=== PATIENT | male | born 1955 | race Caucasian/White ===

== ENCOUNTER → 2017-05-19 | Day surgery (SDC) | payer MEDICARE ==
[~2017-05-19] MED LIST: BIOFLEX TABLET1 EACH PO; CIPRO750 MG PO; CVS OMEGA-3 KR1 EACH PO; DEMEROL; DICYCLOMINE HCL20 MG PO; DILAUDID4 MG PO; HYDROCODONE-APA1 T54 PO; LIPITOR40 MG; LISINOPRIL-HCTZ1 T14 PO; MOBIC15 MG PO; NEXIUM PO; NORCO 10-325 TA1 TAB PO; RA ONE DAILY M1 EACH PO; TEMAZEPAM PO; TEMAZEPAM30 MG PO; VITAMIN C500 M1 PO; VITAMIN D400 UNI2 PO; ZESTORETIC 10/11 TAB; ZESTORETIC 20-1 EAC1 PO; ZESTORETIC 20/11 TAB
--- NOTE | ~2017-05-19 | OR ---
Unit #: [id number] #: [id number] Patient: COMPA DINH [id number] [address] [address] [id number] MR#: [id number] NAME: COMPA DINH ROOM: Date of Procedure: 05/19/2017 Admission Date: 05/19/2017 Surgeon: Isaac Low M.D. : 1955 Attending Physician: Isaac Low M.D. Primary Care Physician: Marcus Pina M.D. OPERATIVE REPORT PREOPERATIVE DIAGNOSES Thoracic degenerative disk disease, back pain, thoracic radiculopathy. POSTOPERATIVE DIAGNOSIS Thoracic degenerative disk disease, back pain, thoracic radiculopathy. PROCEDURE PERFORMED Thoracic epidural steroid injection with fluoroscopic guidance for needle localization. INDICATIONS FOR PROCEDURE The patient is a 61-year-old male with multilevel multifactorial disk and spine disease. He has had a prior cervical and lumbar decompression and fusions. He has significant thoracic disk disease at T6-T7 level. He has failed to settle with conservative measures, so the plan is to trial epidural steroid injection. DESCRIPTION OF PROCEDURE The patient was placed in a seated position. Standard monitors were applied. Sterile prep and drape of the thoracic area were performed. The skin then to the right of midline at the T7 level was localized with 1% lidocaine. An 18-gauge Hustead needle was then advanced via right paramedian approach and loss of resistance technique in toward the epidural space. After confirming proper positioning with fluoroscopy and radiographic contrast, 80 mg of Depo-Medrol and 4 mL of 0.125% bupivacaine were deposited. The patient tolerated the procedure otherwise well and was discharged to the recovery room in stable condition. Dictated by... Cary Christianson/shirley TD: 05/19/2017 13:47 JOB #: [id number] Unit #: [id number] #: [id number] Patient: COMPA DINH OPERATIVE REPORT Page 1 of 1 X Isaac Low MD X PROCEDURE OPERATIVE NOTE
== END | disposition home or self-care (01) ==
LOC: CCSC 07:49
DX: M51.14 Intervertebral disc disorders with radiculopathy, thoracic region (principal); I10 Essential (primary) hypertension; K21.9 Gastro-esophageal reflux disease without esophagitis; Z88.5 Allergy status to narcotic agent; Z79.899 Other long term (current) drug therapy
CPT/HCPCS: J1040; J2250